=== PATIENT | female | born 1955 ===

== ENCOUNTER 2023-04-09 09:46 | Inpatient (IN) | payer OTHER ==
[~2023-04-09] VITALS: Ht 144.8 cm; Wt 69.4 kg
[2023-04-10] MEDS ORDERED: LANTUS SOL100 UNIT/1 (09:40)
[2023-04-10] MEDS ORDERED: CARVEDILOL12.5 MG (09:41)
[2023-04-10] MEDS ORDERED: ZESTORETIC 20-1 EAC1 PO (09:41)
[2023-04-10] MEDS ORDERED: LIPITOR40 M1 PO (09:41)
[2023-04-10] MEDS ORDERED: CHILDREN'S ASPI81 MG PO (09:42)
[2023-04-10] MEDS ORDERED: HUMALOG100 UNIT/2 (09:43)
[2023-04-17] MEDS ORDERED: METFORMIN HCL1000 M3 (08:25)
[2023-04-17] MEDS ORDERED: VITAMIN B-121000 MCG (08:25)
[2023-04-18] MEDS ORDERED: XARELTO10 MG PO (07:41)
[2023-04-18] MEDS ORDERED: INTEGRA PLUS C1 EACH PO (07:41)
[2023-04-18] MEDS ORDERED: OXYC1TAB9 PO (07:42)
[2023-04-18] MEDS ORDERED: BACTRIM DS TAB1 EACH PO (07:42)
== END 2023-04-18 14:07 | DRG 470 ==
LOC: O/R 04-16 05:15 → SURH 04-16 05:15
PROVIDERS: ADMIT Orthopaedic Surgery Sports Medicine; ATTEND Orthopaedic Surgery Sports Medicine
PROC: 3E0F7SF Introduction of Other Gas into Respiratory Tract, Via Natural or Artificial Opening (ICD-10-PCS; 2023-04-16)
PROC: 0SRC0J9 Replacement of Right Knee Joint with Synthetic Substitute, Cemented, Open Approach (ICD-10-PCS; principal; 2023-04-16 07:00)
DX: M17.11 Unilateral primary osteoarthritis, right knee (principal); I10 Essential (primary) hypertension; E11.9 Type 2 diabetes mellitus without complications; Z79.4 Long term (current) use of insulin